=== PATIENT | female | born 1965 | race African-American/Black ===

== ENCOUNTER 2016-12-05 09:26 | Emergency (ER) | payer OTHER ==
[~2016-12-05] VITALS: Ht 167.6 cm; Wt 69.0 kg
[2016-12-05] MEDS ORDERED: TRAMADOL HCL50 MG PO (12:42)
[2016-12-05 13:11] VITALS: BP 123/86
== END 2016-12-05 13:00 | disposition home or self-care (01) ==
LOC: EME 09:26
DX: Z43.3 Encounter for attention to colostomy (principal); I10 Essential (primary) hypertension; E11.9 Type 2 diabetes mellitus without complications; Z87.828 Personal history of other (healed) physical injury and trauma; Z72.0 Tobacco use
CPT/HCPCS: 99281; 99284

== ENCOUNTER 2016-12-14 21:44 | Emergency (ER) | payer OTHER ==
[~2016-12-14] VITALS: Ht 167.6 cm; Wt 69.7 kg
[~2016-12-14 21:44] MED LIST: TRAMADOL HCL50 MG PO
[2016-12-14 23:30] VITALS: BP 145/88
== END 2016-12-14 23:31 | disposition home or self-care (01) ==
LOC: EME 21:44
DX: Z43.3 Encounter for attention to colostomy (principal); E11.9 Type 2 diabetes mellitus without complications; I10 Essential (primary) hypertension; F17.200 Nicotine dependence, unspecified, uncomplicated
CPT/HCPCS: 99281; 99283